=== PATIENT | male | born 1990 | race Caucasian/White ===

== ENCOUNTER 2025-01-10 08:01 | Emergency (ER) | payer BC, SELFPAY ==
[2025-01-10 08:07] VITALS: BP 158/95
[2025-01-10 08:32] LABS: % Basophils 0.4 % (0-2); % Eosinophils 3.9 % (0-6); % Immature Granulocytes 0.4 % (0-0.5); % Lymphocytes 30.7 % (20.5-51.1); % Monocytes 7.2 % (1.7-9.3); % Neutrophils 57.4 % (42.2-75.2); Absolute Eosinophils 0.3 10^3/uL (0-0.7); Absolute Lymphocytes 2.1 10^3/uL (1.2-3.4); Absolute Monocytes 0.5 10^3/uL (0.1-0.6); Absolute Neutrophils 3.8 10^3/uL (1.4-6.5); Hematocrit 45.5 % (39.0-52.0); Hemoglobin 15.7 g/dL (13.0-18.0); Mean Corp Hgb Conc. 34.5 g/dL (33.0-37.0); Mean Corpuscular Hgb 28.3 pg (27.0-31.0); Mean Corpuscular Volume 82.1 fL (80.0-94.0); Mean Platelet Volume 8.9 fL (7.4-10.4); Nucleated Red Blood Cells % 0 % (-); Platelet Count 217 10^3/uL (130-400); Red Blood Cell Count 5.54 10^6/uL (4.70-6.10); Red Cell Dist. Width 12.6 % (11.5-14.5); White Blood Cell Count 6.7 10^3/uL (4.8-10.8)
--- NOTE | 2025-01-10 08:47 | ED.GENMED ---
History of Present Illness
General
Chief Complaint: Chest Pain
Source: patient
Exam Limitations: none
Time Seen by Provider: 01/10/25 08:23
Nursing documentation reviewed up to this point in time: agreed with
History of Present Illness
History of Present Illness:
34-year-old male with past medical history of GERD hyperlipidemia presenting to the emergency department today with concerns of left-sided posterior shoulder blade discomfort radiating around to the left arm and left axilla. Has had intermittent
chest pain over the past few weeks as well. Did have an outpatient chest x-ray without emergent findings. Denies any recent trauma surgery immobilization, leg swelling or estrogen product usage
Review of Systems
Review of Systems
Allergies reviewed?: Yes
All Other Systems: ROS reviewed and negative except as documented in HPI and ROS
Phy Exam
Physical Exam
Physical Exam:
GENERAL: Alert , in no apparent distress
EYE: pupils equal and reactive
NECK: Supple, no significant adenopathy.
ENT: o/p clr, mmm.
CARDIAC: Regular rate and rhythm .
LUNGS: Clear breath sounds bilaterally, no acute respiratory distress, no wheezes/rales/rhonchi
ABDOMEN: Soft, without focal tenderness, no r/g, no cvat
NEUROLOGICAL: Alert and oriented, no focal neuro deficits
SKIN: Warm and dry, skin intact.
MUSCULOSKELETAL: No edema, well perfused.
PSYCH: Normal and appropriate interaction.
Scores
Heart Score for Chest Pain Patients
STEMI patient?: No
History: Slightly or Non-Suspicious
ECG: Normal
Age: </= 45 years
Risk Factors: No Risk Factors
Troponin: </= Normal Limit
Heart Score for Chest Pain Patients: 0
Heart Score Risk: 2.5% MACE over next 6 weeks
Course
Orders/Labs/Results
Orders:
Orders
01/10/25 08:03
ECG [Electrocardiogram (*1)] Urgent
Reason for Study: Chest Pain
EKG- Treatment ONCE
01/10/25 08:25
Complete Blood Count/With Diff Urgent
Comprehensive Metabolic Panel Urgent
Lipase Urgent
Comment: ADD ON
Troponin I Urgent
01/10/25 08:37
Add On- LAB Urgent
Tests Added?: lipase
01/10/25 08:45
D-Dimer Urgent
01/10/25 10:11
Ketorolac [Toradol] 15 mg .ROUTE .STK-MED ONE
Ketorolac [Toradol] 15 mg IV NOW STA
01/10/25 10:12
Chest [CR Chest - 2 Views ] Urgent
Comment:
Reason For Exam: cp left scapula pain
01/10/25 10:25
Mag Hydrox/Al Hydrox/Simeth [Maalox] 30 ml Phenobarb/Hyoscy/Atropine/Scop [] 10 ml PO NOW
01/10/25 10:35
Mag Hydrox/Al Hydrox/Simeth [Maalox] 30 ml .ROUTE .STK-MED ONE
Phenobarb/Hyoscy/Atropine/Scop [] 10 ml .ROUTE .STK-MED ONE
Abnormal Lab Results
01/10/25
08:25
Glucose 102 H mg/dl
(70-99)
01/10/25 08:25
01/10/25 08:25
Vital Signs
Initial and Last Documented VS:
Initial Vital Signs
Temp Pulse Resp BP Pulse Ox
97.7 F 88 18 158/95 100
01/10/25 08:07 01/10/25 08:07 01/10/25 08:07 01/10/25 08:07 01/10/25 08:07
Last Documented Vital Signs
Temp Pulse Resp BP Pulse Ox
97.7 F 55 19 128/86 95
01/10/25 08:07 01/10/25 11:05 01/10/25 11:00 01/10/25 11:00 01/10/25 11:00
MDM/Problems Addressed
MDM/Problems Addressed:
34-year-old male presenting with concerns of left-sided posterior shoulder blade discomfort some radiation to left arm on arrival blood pressure slightly elevated otherwise vital signs are normal. Heart and lung examination without emergent
findings. EKG no signs of ischemia or arrhythmia. Troponin negative labs unremarkable chest x-ray normal. Patient without evidence of any acute process ACS very unlikely stable for outpatient follow-up. Return precautions given.
*Critical Care Note
Total Time (30-74mins, 75-104mins- exclusive of procedures): Not Applicable
ED Attending Note
-
Portions of this chart may have been created with voice recognition software.� Occasional wrong word or��sound alike� substitutions may have occurred due to the inherent limitations of voice recognition software.
Discharge Plan
Departure
Patient Disposition: Home (Routine Discharge)
Date of Disposition: 01/10/25
Time of Disposition: 11:51
Patient with high blood pressure during this ER visit?: No
Condition: Good
Covid-19: Not Applicable
Discharge Problem:
Chest pain
Instructions: Chest Pain DCA Follow Up
Prescriptions:
New
naproxen 500 mg tablet
500 mg PO BID PRN (Reason: Pain) Qty: 14 0RF
Referrals:
MARYCRUZ TREJO MD [Family Provider] -
Activity Restrictions/Additional Instructions:
You came to the emergency department today with concerns of chest pain. Here you have a reassuring assessment. Please follow closely as an outpatient. Return for any worsening, new or concerning symptoms.
Interventions
Interventions:
*Risk Screen - Suicide Last Done: 01/10/25 08:07
*General Assessment Last Done: 01/10/25 08:07
*Neglect/Abuse Screening Last Done: 01/10/25 08:07
*ED- Fall Risk Assessment Last Done: 01/10/25 11:08
*ED COVID-19 Vaccine History Last Done: 01/10/25 11:08
ED- Cardiac Assessment Last Done: 01/10/25 08:28
Discharge Date and Time
Print Language: BULGARIAN
[2025-01-10 08:48] LABS: ALT (SGPT) 44 U/L (0-50); AST (SGOT) 24 U/L (17-59); Albumin 4.5 g/dl (3.5-5.0); Alkaline Phosphatase 75 U/L (38-126); Blood Urea Nitrogen 14 mg/dl (9-20); Calcium 9.7 mg/dl (8.4-10.2); Carbon Dioxide 30 mmol/L (22-30); Chloride 103 mmol/L (98-107); Glucose 102 mg/dl (70-99); Potassium 4.2 mmol/L (3.5-5.1); Sodium 140 mmol/L (135-145); Total Bilirubin 0.6 mg/dl (0.2-1.3); Total Protein 7.3 g/dl (6.3-8.2); eGFR > 60.00
[2025-01-10 08:58] LABS: Troponin I < 0.012 ng/ml
[2025-01-10 09:00] VITALS: BP 134/87
[2025-01-10 09:14] LABS: D-Dimer < 0.27 ug/mlFEU (0.00-0.50)
[2025-01-10 09:15] LABS: Lipase 119 U/L (23-300)
[2025-01-10 10:00] VITALS: BP 115/76
[2025-01-10] MEDS: TORADOL 15 MG IV (10:11)
[2025-01-10] MEDS: MAALOX 40 PO (10:47)
[2025-01-10 11:00] VITALS: BP 128/86
== END 2025-01-10 12:05 | disposition home or self-care (01) ==
LOC: EMR 08:01
PROVIDERS: Physician Assistant; EMERGENCY PHYSICIAN Emergency Medicine; FAMILY PHYSICIAN Family Medicine
DX: R07.89 Other chest pain (principal); K21.9 Gastro-esophageal reflux disease without esophagitis; E78.5 Hyperlipidemia, unspecified
CPT/HCPCS: 99285; 96374; 71046; 80053; 83690; 84484; 85025; 85379; 93005

== ENCOUNTER → 2025-02-22 08:08 | Outpatient (REF) | payer BC, SELFPAY | LOC: HWRCS 08:08 | PROVIDERS: ATTENDING PHYSICIAN Internal Medicine Cardiovascular Disease | DX: R06.02 Shortness of breath (principal) | CPT/HCPCS: 93306 ==

== ENCOUNTER → 2025-02-27 10:39 | Outpatient (REF) | payer BC, SELFPAY | LOC: RCS 10:39 | PROVIDERS: ATTENDING PHYSICIAN Internal Medicine Cardiovascular Disease; FAMILY PHYSICIAN Family Medicine | DX: R00.2 Palpitations (principal); R07.89 Other chest pain; E78.2 Mixed hyperlipidemia | CPT/HCPCS: 93017 ==